=== PATIENT | female | born 1960 | race Caucasian/White ===

== ENCOUNTER 2019-04-02 03:34 | Emergency (ER) | payer BC, MEDICAID ==
[2019-04-02] MEDS ORDERED: Meperidine PF 25 MG/ML Syringe IVPUSH ONE (04:35)
[2019-04-02] MEDS ORDERED: Meperidine PF 50 MG/ML Syringe IVPUSH ONE ×2 (04:59→05:18)
[2019-04-02 05:12] LABS: ANION GAP 16.2 mmol/L (5-15); CHLORIDE,CL 103 mmol/L (98-115); SODIUM,NA 142 mmol/L (136-145)
[2019-04-02] MEDS ORDERED: Lidocaine 2% Jelly 5 ML Tube TOP ONE (05:31)
[2019-04-02] MEDS ORDERED: Sodium Chloride 0.9% 1,000 ML IV ONE (06:03)
[2019-04-02] MEDS ORDERED: Fluconazole/Normal Saline 400 MG in Premix Bag 1 BAG IV ONE (06:05)
--- NOTE | 2019-04-02 07:05 | EDM.PDOC ---
ED HPI GENERAL MEDICAL PROBLEM - General Chief Complaint: General Stated Complaint: Pain in vaginal labia and anus Time Seen by Provider: 04/02/19 04:00 Source of Information: Reports: Patient History Limitations: Reports: No Limitations - History of Present Illness INITIAL COMMENTS - FREE TEXT/NARRATIVE: 58-year-old female presents to the emergency room with a severe pain dysuria for the last 7 days. He is being treated for a urinary tract infection and yeast infection. She is currently taking clindamycin 300 mg 3 times a day ciprofloxacin 500 mg twice a day and fluconazole 100 mg by mouth daily. Despite this she still having severe dysuria and tenderness in the vaginal area. She is poorly controlled type II diabetic. She denies any fever or chills. She denies flank pain. She states she has not been drinking much for fluids in the last 24 hours due to discomfort with urinating. 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 - Related Data Allergies Allergy/AdvReac Type Severity Reaction Status Date / Time bacitracin [From Polysporin] Allergy Cannot Verified 04/02/19 07:56 Remember Penicillins Allergy Hives Verified 04/02/19 07:56 polymyxin B [From Polysporin] Allergy Cannot Verified 04/02/19 07:56 Remember Sulfa (Sulfonamide Allergy Hives Verified 04/02/19 07:56 Antibiotics) topical antibiotic ointments Allergy Cannot Uncoded 04/02/19 07:56 Remember Home Meds: Home Meds Aspirin [Ecotrin EC] 81 mg PO DAILY 04/02/19 [History] Ciprofloxacin HCl [Cipro] 500 mg PO BID 04/02/19 [History] Clopidogrel [Plavix] 75 mg PO DAILY 04/02/19 [History] Isosorbide Mononitrate [Isosorbide Mononitrate ER] 30 mg PO DAILY 04/02/19 [ History] Lisinopril 40 mg PO WITHDINNER 04/02/19 [History] Metoprolol Succinate [Toprol XL] 25 mg PO DAILY 04/02/19 [History] Omeprazole 20 mg PO ACBREAKFAST 04/02/19 [History] atorvaSTATin [Lipitor] 80 mg PO DAILY 04/02/19 [History] metFORMIN [Glucophage XR] 500 mg PO WITHDINNER 04/02/19 [History] Past Medical History Genitourinary History: Reports: UTI, Recurrent Endocrine/Metabolic History: Reports: Diabetes, Type II - Past Surgical History Respiratory Surgical History: Reports: None Dermatological Surgical History: Reports: None Social & Family History - Family History Family Medical History: Unobtainable - Tobacco Use Used Tobacco, but Quit: No Second Hand Smoke Exposure: No - Caffeine Use Caffeine Use: Reports: Coffee, Soda, Tea - Recreational Drug Use Recreational Drug Use: No - Living Situation & Occupation Living situation: Reports: , with Family Occupation: Other ED ROS GENERAL - Review of Systems Review Of Systems: See Below Constitutional: Denies: Fever, Chills HEENT: Reports: No Symptoms Respiratory: Reports: No Symptoms Cardiovascular: Reports: No Symptoms Endocrine: Reports: High Glucose : Reports: Discharge, Dysuria, Hematuria, Pain, Urgency. Denies: Flank Pain Musculoskeletal: Denies: Neck Pain, Back Pain Skin: Reports: No Symptoms Neurological: Reports: No Symptoms Psychiatric: Reports: No Symptoms Hematologic/Lymphatic: Reports: No Symptoms Immunologic: Reports: No Symptoms ED EXAM, GENERAL - Physical Exam Exam: See Below Exam Limited By: No Limitations General Appearance: Alert, Mild Distress, Obese Eye Exam: Bilateral Eye: EOMI Ears: Hearing Grossly Normal Nose: Normal Inspection Throat/Mouth: Normal Voice, No Airway Compromise Head: Atraumatic, Normocephalic Neck: Normal Inspection Respiratory/Chest: No Respiratory Distress, Lungs Clear, Normal Breath Sounds Cardiovascular: Regular Rate, Rhythm GI/Abdominal: Normal Bowel Sounds, Soft, Non-Tender (Female) Exam: Deferred (He shouldn't deferred due the severity of pain and discomfort surrounding the patient's swelling of the labia erythema and yeast infection), Cervical Discharge, Vaginal Discharge, Other (Vaginitis edema, edema excoriations around the labia, erythema) Rectal (Female) Exam: Normal Exam Back Exam: Normal Inspection, Full Range of Motion. No: CVA Tenderness (L), CVA Tenderness (R) Neurological: Alert, Oriented, No Motor/Sensory Deficits Psychiatric: Normal Affect Lymphatic: No Adenopathy Course - Vital Signs Text/Narrative:: IV Demerol 50 mg given. Patient was not able to tolerate UA catheter due to pain swelling and tenderness. She was given 1 L normal saline IV fluid. Ordering to give her IV gentamicin 120 mg now Last Recorded V/S: Last Vital Signs Temp 96.0 F 04/02/19 04:11 Pulse 86 04/02/19 04:11 Resp 20 04/02/19 04:11 BP Pulse Ox 99 04/02/19 04:11 - Orders/Labs/Meds Orders: Active Orders 24 hr Category Date Time Status CULTURE URINE [RM] Stat Lab 04/02/19 06:01 Received Labs: Laboratory Tests 04/02/19 04/02/19 04/02/19 Range/Units 04:05 04:45 05:58 WBC 6.84 (5.00-10.00) 10^3/uL RBC 4.63 (3.80-5.50) 10^6/uL Hgb 14.5 (12.0-16.0) g/dL Hct 40.9 (37.0-47.0) % MCV 88.3 (82.0-92.0) fL MCH 31.3 H (27.0-31.0) pg MCHC 35.5 (32.0-36.0) g/dL RDW 13.8 (11.5-14.5) % Plt Count 227 (150-400) 10^3/uL MPV 9.4 (7.4-10.4) fL Immature Gran % (Auto) 0.9 (0.0-5.0) % Neut % (Auto) 67.2 (50.0-70.0) % Lymph % (Auto) 24.3 (20.0-40.0) % [place] % (Auto) 5.8 (2.0-8.0) % Eos % (Auto) 1.2 (1.0-3.0) % Baso % (Auto) 0.6 (0.0-1.0) % Immature Gran # (Auto) 0.06 (0.00-0.50) 10^3/uL Neut # (Auto) 4.60 (2.50-7.00) 10^3/uL Lymph # (Auto) 1.66 (1.00-4.00) 10^3/uL [place] # (Auto) 0.40 (0.10-0.80) 10^3/uL Eos # (Auto) 0.08 L (0.10-0.30) 10^3/uL Baso # (Auto) 0.04 (0.00-0.10) 10^3/uL Sodium 142 (136-145) mmol/L Potassium 4.7 (3.3-5.3) mmol/L Chloride 103 (98-115) mmol/L Carbon Dioxide 27.5 (21.0-32.0) mmol/L Anion Gap 16.2 H (5-15) mmol/L BUN 10 (6-25) mg/dL Creatinine 0.87 (0.51-1.17) mg/dL Est Cr Clr Drug Dosing 64.20 mL/min Estimated GFR (MDRD) > 60 mL/min Glucose 183 H (75 - 99) mg/dL Calcium 9.0 (8.7-10.3) mg/dL Specimen Type Urinvoid Urine Color Yellow (YELLOW) Urine Appearance Cloudy H (CLEAR) Urine pH 5.5 (5.0-9.0) Ur Specific [place] >= 1.030 (1.005-1.030) Urine Protein 100 H (NEGATIVE) mg/dL Urine Glucose (UA) 500 H (NEGATIVE) mg/dL Urine Ketones Trace H (NEGATIVE) mg/dL Urine Occult Blood Large H (NEGATIVE) Urine Nitrite Negative (NEGATIVE) Urine Bilirubin Negative (NEGATIVE) Urine Urobilinogen 1.0 (0.2-1.0) E.U./dL Ur Leukocyte Esterase Small H (NEGATIVE) Urine RBC 10-20 H (0-5) /HPF Urine WBC Packed (0-5) /HPF Ur Epithelial Cells Many H /LPF Urine Bacteria Many H (NONE TO FEW) /HPF Meds: Medications Discontinued Medications Generic Name Dose Route Start Last Admin Trade Name Freq PRN Reason Stop Dose Admin Sodium Chloride 1,000 mls @ 1,000 mls/hr 04/02/19 06:03 04/02/19 06:16 Normal Saline IV 04/02/19 07:02 1,000 mls/hr .BOLUS ONE Administration Fluconazole/Sodium Chloride 200 mls @ 200 mls/hr 04/02/19 06:05 04/02/19 07: 43 400 mg/ Premix IV 04/02/19 07:04 200 mls/hr ONETIME ONE Administration Gentamicin Sulfate 120 mg/ 103 mls @ 200 mls/hr 04/02/19 07:00 04/02/19 07:14 Sodium Chloride IV 04/02/19 07:30 200 mls/hr ONETIME ONE Administration Lidocaine HCl 5 ml 04/02/19 05:31 04/02/19 05:37 Xylocaine 2% Jelly TOP 04/02/19 05:32 5 ampule ONETIME ONE Administration Meperidine HCl 25 mg 04/02/19 04:35 Demerol IVPUSH 04/02/19 04:36 ONETIME ONE Meperidine HCl 25 mg 04/02/19 04:59 04/02/19 05:00 Demerol IVPUSH 04/02/19 05:00 25 mg ONETIME ONE Administration Meperidine HCl 25 mg 04/02/19 05:18 04/02/19 05:27 Demerol IVPUSH 04/02/19 05:19 25 mg ONETIME ONE Administration Phenazopyridine HCl 100 mg 04/02/19 09:00 04/02/19 07:17 Pyridium PO 100 mg TID DONG Administration Departure - Departure Time of Disposition: 07:15 Disposition: Home, Self-Care 01 Condition: Fair Clinical Impression: Yeast infection involving the vagina and surrounding area, UTI (urinary tract infection), bacterial, Dysuria - Discharge Information Instructions: Vaginal Yeast Infection, Adult, Urinary Tract Infection, Adult, Dysuria Referrals: Reina Vee PA-C [Primary Care Provider] - Forms: ED Department Discharge - My Orders Last 24 Hours: My Active Orders 04/02/19 06:01 CULTURE URINE [RM] Stat - Assessment/Plan Last 24 Hours: My Active Orders 04/02/19 06:01 CULTURE URINE [RM] Stat Assessment:: 1. Severe yeast infection surrounding the vagina and genitalia 2. UTI 3. Dysuria Plan: 1. Encouraged oral hydration 2. Encouraged patient to drink cranberry juice and eat yogurt for probiotic bacteria 3. Return tomorrow outpatient for IV antibiotics and fluconazole IV, Pyridium further dysuria 3 times a day 4. Will need to follow-up with her primary care on Thursday for clinical recheck and follow-up cultures from your urine
[2019-04-02] MEDS ORDERED: Phenazopyridine 100 MG Tab PO SCH (09:00)
== END 2019-04-02 09:10 | disposition home or self-care (01) ==
LOC: KA.ED 03:34
DX: B37.3 Candidiasis of vulva and vagina (principal); N39.0 Urinary tract infection, site not specified; B96.89 Other specified bacterial agents as the cause of diseases classified elsewhere; E11.9 Type 2 diabetes mellitus without complications; Z79.02 Long term (current) use of antithrombotics/antiplatelets; Z79.84 Long term (current) use of oral hypoglycemic drugs; Z88.0 Allergy status to penicillin; Z88.1 Allergy status to other antibiotic agents; Z88.2 Allergy status to sulfonamides
CPT/HCPCS: 80048; 81001; 85025; 87086; 96361; 96365; 96367; 96375; 99283-25; A9270-GY; J1450; J1580; J2175; J7030; J7050

== ENCOUNTER 2021-12-08 14:10 | Emergency (ER) | payer BC, MEDICAID ==
[2021-12-08 14:28] VITALS: BP 118/77; PULSE 79
== END 2021-12-08 15:00 | disposition home or self-care (01) ==
LOC: KA.ED 14:10
DX: H60.12 Cellulitis of left external ear (principal); K21.9 Gastro-esophageal reflux disease without esophagitis; I48.91 Unspecified atrial fibrillation; I25.2 Old myocardial infarction; E11.9 Type 2 diabetes mellitus without complications; Z86.73 Personal history of transient ischemic attack (TIA), and cerebral infarction without residual deficits; Z79.82 Long term (current) use of aspirin; Z79.02 Long term (current) use of antithrombotics/antiplatelets; Z79.899 Other long term (current) drug therapy
CPT/HCPCS: 99282; 99283; A9270-GY